=== PATIENT | female | born 1955 | race American Indian/Alaskan Native ===

== ENCOUNTER 2020-11-06 14:14 | Outpatient (CLI) | payer MEDICARE ==
--- NOTE | 2020-11-07 07:24 | Ultrasound Report ---
ULTRASOUND RENAL INDICATION: CHRONIC KIDNEY DISEASE STAGE. COMPARISON: No relevant prior imaging study available. FINDINGS: RIGHT KIDNEY: Size: 9.1 cm. Echogenicity: Normal. Cortical thickness: Normal. Stones: None. Hydronephrosis: None. Cyst or mass: None. LEFT KIDNEY: Size: 8.4 cm. Echogenicity: Normal. Cortical thickness: Normal. Stones: None. Hydronephrosis: None. Cyst or mass: None. Urinary Bladder: No significant abnormality. Free Fluid: None. Additional Findings: None. IMPRESSION 1. No acute sonographic abnormality of the kidneys. Signer Name: Jorje Quigley MD Signed: 11/06/2020 5:14 PM Workstation Name: [id number]
== END 2020-11-06 14:15 | disposition home or self-care (01) ==
LOC: US 14:14
PROVIDERS: ATTEND Specialist
DX: N18.31 Chronic kidney disease, stage 3a (principal)
CPT/HCPCS: 76770

== ENCOUNTER 2022-01-20 10:34 | Emergency (ER) | payer MEDICARE ==
--- NOTE | 2022-01-20 19:28 | Emergency Department Report ---
HPI - General Chief Complaint: Headache Time Seen by Provider: 01/20/22 19:25 - HPI HPI: For the last month the patient has been having this moderate diffuse throbbing headaches. She has had a couple episodes of syncope the last of which was about 8 days prior to arrival. The last thing she remembers she was in the kitchen looking for some ice which usually relieves her headaches and She knows she is on the floor. It is an unknown downtime that she lost consciousness for. She is not want to usually get headaches. She denies focal weakness nausea vomiting fever chills or any other associated symptoms. Ice makes the pain better nothing makes it worse other than exertion. ED Past Medical Hx - Past Medical History Hx Hypertension: Yes Hx Asthma: Yes - Surgical History Additional Surgical History: Hysterectomy - Social History Smoking Status: Current Every Day Smoker Substance Use Type: Alcohol, Prescribed - Medications Home Medications: Home Medications Medication Instructions Recorded Confirmed Last Taken Type Azithromycin [Zithromax Z-JOSE ARMANDO] 500 mg PO DAILY #1 pkg 07/09/16 01/20/22 Unknown Rx Cetirizine HCl [ZyrTEC] 10 mg PO DAILY #30 capsule 07/09/16 01/20/22 Unknown Rx lisinopriL [Zestril] 5 mg PO QDAY #30 tablet 07/09/16 01/20/22 Unknown Rx ED Review of Systems ROS: Stated complaint: HEADACHE/HOT FLASHES Other details as noted in HPI Comment: All other systems reviewed and negative Physical Exam - Physical Exam Vital Signs: Vital Signs 01/20/22 12:51 Temperature 98.8 F Pulse Rate 72 Respiratory 18 Rate Blood Pressure 135/62 [Right] O2 Sat by Pulse 100 Oximetry Physical Exam: Physical Exam: Constitutional: AAOX3. No acute distress. No diaphoresis. HENT: Normocephalic. Pupils equal and reactive. No throat edema or erythema. Neck: No neck rigidity or tenderness. Cardiovascular: Heart sounds: No murmur. Normal rate and regular rhythm. Pulses: Intact distal pulses. Lungs: No wheezing or rales. Chest wall: No tenderness. Abdominal: No distension. No mass/pulsatile mass. No abdominal tenderness, guarding nor rebound. Musculoskeletal: Normal range of motion. No edema, No calf TTP. Skin: Warm and dry. Neurological: Alert and oriented to person, place, and time. NIH stroke scale equals 0. Psychiatric: Mood and affect normal. Normal cognition and memory. Normal judgement. ED Course Vital Signs 01/20/22 12:51 Temperature 98.8 F Pulse Rate 72 Respiratory 18 Rate Blood Pressure 135/62 [Right] O2 Sat by Pulse 100 Oximetry - Reevaluation(s) Reevaluation #1: 01/20/22 20:11 EKG done at 2004 shows a rate of 63, normal. The rhythm is sinus rhythm, normal. There is possible left atrial enlargement. There are no ST or T wave normalities. ED Medical Decision Making - Lab Data Result diagrams: 01/20/22 19:46 Critical care attestation.: If time is entered above; I have spent that time in minutes in the direct care of this critically ill patient, excluding procedure time. ED Disposition Clinical Impression: Headache, Syncope Disposition: 07 LEFT AGAINST MEDICAL ADVICE Is pt being admited?: No Does the pt Need Aspirin: No Condition: Stable Instructions: Syncope (ED), Syncope Referrals: JOE MOHAMUD MD [Primary Care Provider] - 3-5 Days Forms: AMA Form Time of Disposition: 20:25 Print Language: [place]
[2022-01-20 19:48] VITALS: BP 132/89
--- NOTE | 2022-01-20 20:04 | Cat Scan Report ---
CT BRAIN: 01/20/2022 INDICATION / CLINICAL INFORMATION: headache. COMPARISON: None available. FINDINGS: BRAIN/INTRACRANIAL STRUCTURES: Unenhanced CT images of the brain demonstrate no evidence of acute abn ormality. Ventricles and sulci are normal in size and shape for a patient of this age. There is no evidence of acute large vessel territory ischemic injury, hemorrhage, or mass. Moderate c hronic microangiopathic white matter hypoattenuation is scattered throughout the cerebral hemispheric white matter. There are no abnormal extra-axial fluid collections. EXTRACRANIAL STRUCTURES: Unremarkable. IMPRESSION: No acute abnormality All CT scans at this location are performed using dose reduction to ALARA by means of automated expos ure control. Signer Name: Baldemar Thompson MD Signed: 01/20/2022 8:00 PM Workstation Name: [id number]
[2022-01-20 20:11] LABS: Basophils % (Auto) 0.6 % (0.0-1.8); Eosinophils # (Auto) 0.1 K/mm3 (0.0-0.4); Eosinophils % (Auto) 2.5 % (0.0-4.3); Hemoglobin 13.1 gm/dl (10.1-14.3); Lymphocytes # (Auto) 1.5 K/mm3 (1.2-5.4); Lymphocytes % (Auto) 26.5 % (13.4-35.0); Mean Corpuscular HGB Conc 32 % (30-34); Mean Corpuscular Volume 72 fl (79-97); Monocytes # (Auto) 0.6 K/mm3 (0.0-0.8); Platelet Count 237 K/mm3 (140-440); Red Blood Count 5.68 M/mm3 (3.65-5.03); Red Cell Distribution Width 14.7 % (13.2-15.2)
[2022-01-20 20:31] LABS: Alanine Aminotransferase 15 units/L (7-56); Albumin 4.4 g/dL (3.9-5); BUN/Creatinine Ratio 15; Blood Urea Nitrogen 24 mg/dL (7-17); Calcium 9.8 mg/dL (8.4-10.2); Hemolysis Index 5
--- NOTE | 2022-01-23 19:52 | Electrocardiograph Report ---
[facility] Test Date: 2022-01-20 Test Time: 20:05:18 Pat Name: CHAYO LACEY Department: Room: Gender: F Position Classification Specialist: FRANCINE : 1955 Requested By: KURT COOK Order Number: [id number] Reading MD: Chente Westbrook Measurements Intervals [place] Rate: 63 P: 64 ID: [id number] QRS: 50 QRSD: 78 T: 59 QT: 428 QTc: 438 Interpretive Statements Sinus rhythm Probable left atrial enlargement No previous ECG available for comparison Electronically Signed On 01-23-2022 19:51:55 EDT by Chente Westbrook
== END 2022-01-20 20:23 | disposition left against medical advice (07) ==
LOC: ED 10:34
DX: R51.9 Headache, unspecified (principal); R55 Syncope and collapse; F17.200 Nicotine dependence, unspecified, uncomplicated; F10.20 Alcohol dependence, uncomplicated; I10 Essential (primary) hypertension; J45.909 Unspecified asthma, uncomplicated
CPT/HCPCS: 36415; 70450; 80053; 84484; 85025; 93005; 99283; 99284

== ENCOUNTER 2022-03-05 12:38 | Outpatient (CLI) | payer MEDICARE ==
[2022-03-05 13:39] LABS: Hematocrit 38.6 % (30.3-42.9); Hemoglobin 12.3 gm/dl (10.1-14.3); Mean Corpuscular HGB Conc 32 % (30-34); Mean Corpuscular Volume 72 fl (79-97); Platelet Count 254 K/mm3 (140-440); Red Blood Count 5.39 M/mm3 (3.65-5.03); Red Cell Distribution Width 15.1 % (13.2-15.2)
[2022-03-05 13:57] LABS: Albumin 4.5 g/dL (3.9-5); Calcium 9.9 mg/dL (8.4-10.2)
[2022-03-05 13:59] LABS: Erythrocyte Sedimentation Rate 9 mm/Hr (0-20)
== END 2022-03-05 12:39 | disposition home or self-care (01) ==
LOC: LAB 12:38
PROVIDERS: ATTEND Specialist
DX: R55 Syncope and collapse (principal)
CPT/HCPCS: 36415; 80053; 85027; 85652

== ENCOUNTER 2022-04-24 13:55 | Outpatient (CLI) | payer MEDICARE | END 2022-04-24 13:56 | disposition home or self-care (01) | LOC: LAB 13:55 | PROVIDERS: ATTEND Specialist | DX: I65.22 Occlusion and stenosis of left carotid artery (principal) | CPT/HCPCS: 36415; 80048 ==